=== PATIENT | female | born 1980 | race Caucasian/White ===

== ENCOUNTER 2017-04-15 20:31 | Inpatient (IN) | payer MEDICAID ==
[2017-04-15] MEDS ORDERED: LACTATED RINGER'S 1,000 ML IV (21:36)
[2017-04-15] MEDS ORDERED: OXYTOCIN 30 UNITS/LR 500 ML IV (22:00)
[2017-04-15] MEDS ORDERED: LIDOCAINE 1% (MPF) 30 ML INJ INJ (22:00)
[2017-04-15] MEDS ORDERED: IBUPROFEN 600 MG TAB PO (22:00)
[2017-04-15] MEDS ORDERED: MISOPROSTOL 200 MCG TAB PR (22:00)
[2017-04-15] MEDS ORDERED: CARBOPROST 250 MCG INJ IM (22:00)
[2017-04-15] MEDS ORDERED: BUTORPHANOL 2 MG INJ IV (22:00)
[2017-04-15] MEDS ORDERED: METHYLERGONOVINE 0.2 MG INJ IM (22:00)
[2017-04-15] MEDS: LACTATED RINGER'S 1,000 ML IV (22:39)
[2017-04-15] MEDS: AMPICILLIN 2 GM/NS (PMX) 100 ML IV (22:54)
[2017-04-15 23:58] LABS: ADD MAN DIFF? NO
[2017-04-16 00:02] LABS: BASOPHILS % 0.3 % (0.0-2.0); EOSINOPHILS # 0.1 10^3/ul (0.0-0.5); EOSINOPHILS % 0.5 % (0.0-7.0); HEMOGLOBIN 12.9 g/dl (12.0-16.0); LYMPHOCYTES # 2.6 10^3/ul (0.8-2.9); LYMPHOCYTES % 23.2 % (15.0-51.0); MEAN CORPUSCULAR HEMOGLOBIN 31.5 pg (29.0-33.0); MEAN CORPUSCULAR HGB CONC 34.9 g/dl (32.0-37.0); MEAN CORPUSCULAR VOLUME 90.2 fl (82.0-101.0); MONOCYTE # 0.8 10^3/ul (0.3-0.9); MONOCYTES % 7.1 % (0.0-11.0); NEUTROPHIL # 7.4 10^3/ul (1.6-7.5); NEUTROPHILS % 67.8 % (39.0-77.0); PLATELET COUNT 279 10^3/UL (140-415); RED CELL DISTRIBUTION WIDTH 13.4 % (11.5-14.5)
[2017-04-16 00:17] LABS: INR 0.96; PROTIME 12.9 Sec (11.9-14.9)
[2017-04-16 00:49] LABS: HEPATITIS B SURFACE ANTIGEN NEGATIVE (NEGATIVE)
[2017-04-16] MEDS: AMPICILLIN 1 GM/NS (PMX) 50 ML IV ×2 (02:59→06:10)
[2017-04-16] MEDS: LACTATED RINGER'S 1,000 ML IV (06:10)
[2017-04-16] MEDS ORDERED: AMPICILLIN 2 GM/NS (PMX) 100 ML IV (06:30)
[2017-04-16] MEDS ORDERED: OXYTOCIN 30 UNITS/LR 500 ML IV ×2 (07:00→09:30)
[2017-04-16] MEDS: OXYTOCIN 30 UNITS/LR 500 ML IV ×2 (07:44→08:31)
[2017-04-16] MEDS: OXYCODONE/ACETAMINOPHEN (5/325) TAB PO (07:55)
[2017-04-16] MEDS ORDERED: METHYLERGONOVINE 0.2 MG INJ IM (09:30)
[2017-04-16] MEDS ORDERED: MISOPROSTOL 200 MCG TAB PR (09:30)
[2017-04-16] MEDS ORDERED: CARBOPROST 250 MCG INJ IM (09:30)
[2017-04-16] MEDS ORDERED: SENNA/DOCUSATE NA (8.6MG/50MG) TAB PO (09:30)
[2017-04-16] MEDS ORDERED: ZOLPIDEM 5 MG TAB PO (09:30)
[2017-04-16] MEDS ORDERED: OXYCODONE/ASPIRIN (4.88/325) TAB PO (09:30)
[2017-04-16] MEDS ORDERED: AMPICILLIN 1 GM/NS (PMX) 50 ML IV (10:30)
[2017-04-16] MEDS: IBUPROFEN 600 MG TAB PO ×2 (12:29→18:27)
[2017-04-16] MEDS: LANOLIN 7 GM TUBE TOP (12:30)
[2017-04-16] MEDS: WITCH HAZEL/GLYCERIN PAD PR (12:30)
[2017-04-16] MEDS: BENZOCAINE 20% 56 ML SPRAY TOP (12:30)
[2017-04-16 15:00] LABS: RAPID PLASMA REAGIN NONREACTIVE (NR)
[2017-04-16] MEDS: SENNA/DOCUSATE NA (8.6MG/50MG) TAB PO (21:36)
[2017-04-17] MEDS: IBUPROFEN 600 MG TAB PO ×5 (00:04→23:38)
[2017-04-17] MEDS: INFLUENZA VIRUS VACCINE 0.5 ML (DISPENSING) IM* (05:30)
[2017-04-17 08:00] LABS: ADD MAN DIFF? NO
[2017-04-17 08:08] LABS: WHITE BLOOD COUNT 10.3 10^3/ul (4.8-10.8)
[2017-04-17 08:08] LABS: BASOPHILS % 0.2 % (0.0-2.0); EOSINOPHILS # 0.1 10^3/ul (0.0-0.5); EOSINOPHILS % 0.6 % (0.0-7.0); HEMATOCRIT 31.9 % (37.0-47.0); HEMOGLOBIN 11.1 g/dl (12.0-16.0); LYMPHOCYTES # 2.2 10^3/ul (0.8-2.9); LYMPHOCYTES % 21.6 % (15.0-51.0); MEAN CORPUSCULAR HEMOGLOBIN 31.6 pg (29.0-33.0); MEAN CORPUSCULAR HGB CONC 34.8 g/dl (32.0-37.0); MEAN CORPUSCULAR VOLUME 90.9 fl (82.0-101.0); MEAN PLATELET VOLUME 10.2 fl (7.4-10.4); MONOCYTE # 0.6 10^3/ul (0.3-0.9); MONOCYTES % 5.5 % (0.0-11.0); NEUTROPHIL # 7.4 10^3/ul (1.6-7.5); NEUTROPHILS % 71.3 % (39.0-77.0); PLATELET COUNT 235 10^3/UL (140-415); RED BLOOD COUNT 3.51 10^6/ul (4.20-5.40)
[2017-04-17] MEDS: SENNA/DOCUSATE NA (8.6MG/50MG) TAB PO ×2 (09:28→21:00)
[2017-04-18] MEDS: IBUPROFEN 600 MG TAB PO ×2 (05:35→12:00)
[2017-04-18] MEDS: SENNA/DOCUSATE NA (8.6MG/50MG) TAB PO (09:34)
[2017-04-18] MEDS: DIPHTH/TET/ACEL PERTUSS (ADULT) 0.5 ML VIAL IM* (10:53)
== END 2017-04-18 15:22 | disposition home or self-care (01) | DRG 775 ==
LOC: OBT 20:31 → PP1 04-16 09:36 → L-D 20:32 → OBT 21:25 → L-D 21:25
PROVIDERS: Obstetrics & Gynecology
PROC: 10E0XZZ Delivery of Products of Conception, External Approach (ICD-10-PCS; principal; 2017-04-16)
DX: O80 Encounter for full-term uncomplicated delivery (principal); Z37.0 Single live birth; Z3A.39 39 weeks gestation of pregnancy
CPT/HCPCS: 76856; 85025; 85610; 85730; 86592; 86850; 86900; 86901; 87340; 90686; 90715

== ENCOUNTER 2018-01-28 12:03 | Emergency (ER) | payer MEDICAID ==
[2018-01-28 13:03] LABS: ADD MAN DIFF? NO
[2018-01-28 13:09] LABS: BASOPHILS % 0.4 % (0.0-2.0); EOSINOPHILS # 0.1 10^3/ul (0.0-0.5); HEMATOCRIT 41.7 % (37.0-47.0); HEMOGLOBIN 14.3 g/dl (12.0-16.0); LYMPHOCYTES # 2.5 10^3/ul (0.8-2.9); LYMPHOCYTES % 35.3 % (15.0-51.0); MEAN CORPUSCULAR HEMOGLOBIN 30.8 pg (29.0-33.0); MEAN CORPUSCULAR HGB CONC 34.3 g/dl (32.0-37.0); MEAN CORPUSCULAR VOLUME 89.7 fl (82.0-101.0); MEAN PLATELET VOLUME 9.6 fl (7.4-10.4); MONOCYTE # 0.4 10^3/ul (0.3-0.9); MONOCYTES % 5.9 % (0.0-11.0); NEUTROPHILS % 57.1 % (39.0-77.0); PLATELET COUNT 251 10^3/UL (140-415); RED BLOOD COUNT 4.65 10^6/ul (4.20-5.40); RED CELL DISTRIBUTION WIDTH 12.6 % (11.5-14.5)
[2018-01-28 13:23] LABS: ADD UMIC YES; UR ASCORBIC ACID NEGATIVE (NEGATIVE); UR BACTERIA FEW /HPF (NONE SEEN); UR BILIRUBIN (Dip) NEGATIVE (NEGATIVE); UR BLOOD (Dip) 3+ mg/dL (NEGATIVE); UR CLARITY CLEAR (CLEAR); UR COLOR YELLOW (YELLOW); UR GLUCOSE (Dip) NEGATIVE (NEGATIVE); UR KETONES (Dip) NEGATIVE (NEGATIVE); UR LEUKOCYTE ESTERASE (Dip) NEGATIVE Leu/ul (NEGATIVE); UR MUCUS FEW /HPF (NONE SEEN); UR NITRITE (Dip) NEGATIVE (NEGATIVE); UR RBC > 182 /HPF (0-5); UR SPECIFIC GRAVITY (Dip) 1.021 (1.003-1.030); UR TOTAL PROTEIN (Dip) NEGATIVE (NEGATIVE); UR UROBILINOGEN (Dip) NEGATIVE (NEGATIVE); UR WBC 3 /HPF (0-5)
[2018-01-28 13:27] LABS: ALANINE AMINOTRANSFERASE 26 IU/L (13-69); ALBUMIN 4.8 g/dl (3.3-4.9); ALBUMIN/GLOBULIN RATIO 1.71; ALKALINE PHOSPHATASE 87 IU/L (42-121); ANION GAP 11 (5-13); ASPARTATE AMINO TRANSFERASE 20 IU/L (15-46); BILIRUBIN,INDIRECT 0.5 mg/dl (0-1.1); BILIRUBIN,TOTAL 0.5 mg/dl (0.2-1.3); BLOOD UREA NITROGEN 12 mg/dl (7-20); CALCIUM 9.3 mg/dl (8.4-10.2); CARBON DIOXIDE 27 mmol/L (21-31); CHLORIDE 104 mmol/L (97-110); CREATININE 0.65 mg/dl (0.44-1.00); Estimated GFR > 60 mL/min (>60); GLUCOSE 94 mg/dl (70-220); POTASSIUM 3.5 mmol/L (3.5-5.1); SODIUM 142 mmol/L (135-144); TOTAL PROTEIN 7.6 g/dl (6.1-8.1)
[2018-01-28] MEDS: ACETAMINOPHEN 325 MG TAB PO (13:32)
[2018-01-28 13:34] LABS: INR 0.97
[2018-01-28 13:35] LABS: PARTIAL THROMBOPLASTIN TIME 33.2 Sec (23.0-35.0)
== END 2018-01-28 15:13 | disposition home or self-care (01) ==
LOC: FTE 12:03
DX: O20.9 Hemorrhage in early pregnancy, unspecified (principal); R10.2 Pelvic and perineal pain; Z3A.01 Less than 8 weeks gestation of pregnancy
CPT/HCPCS: 76801; 76817; 80053; 81001; 84702; 85025; 85610; 85730; 86900; 86901; 99284-25